=== PATIENT | female | born 1960 | race Caucasian/White ===

== ENCOUNTER 2017-09-19 12:56 | Emergency (ER) | payer SELFPAY ==
[~2017-09-19] VITALS: Ht 149.9 cm; Wt 84.0 kg
[~2017-09-19 12:56] MED LIST: AMOX-73
[2017-09-19] MEDS ORDERED: IBUPROFEN 600MG TABLET PO ONE (20:00)
[2017-09-19 20:07] VITALS: BP 154/89
== END 2017-09-19 20:25 | disposition home or self-care (01) ==
LOC: ER 13:37
DX: M79.672 Pain in left foot (principal); R42 Dizziness and giddiness; Z90.49 Acquired absence of other specified parts of digestive tract; Z98.890 Other specified postprocedural states
CPT/HCPCS: 73630; 99284